=== PATIENT | male | born 1990 | race Two or more races ===

== ENCOUNTER → 2018-05-25 20:41 | Emergency (ER) | payer OTHER ==
[2018-05-25 20:51] VITALS: BP 136/86
--- NOTE | 2018-05-25 22:21 | ED ---
Lower Extremity - HPI Summary HPI Summary: 28-year-old male presents with right knee pain today. He denies any numbness or tingling. He states he is able to ambulate by limbing. No ankle pain. No other injury. He states that he was playing basketball and twisted his knee and his knees seemed to pop out of place and then went back. He states that he twisted his knee in medially. He denies any previous knee injuries. O - History of Current Complaint Chief Complaint: EDExtremityLower Stated Complaint: RT KNEE INJURY Time Seen by Provider: 05/25/18 22:03 Pain Intensity: 5 - Allergies/Home Medications Allergies/Adverse Reactions: Allergies Allergy/AdvReac Type Severity Reaction Status Date / Time shrimp Allergy Anaphylatic Verified 05/25/18 20:51 Shock PMH/Surg Hx/FS Hx/Imm Hx Endocrine/Hematology History: Denies: Hx Anticoagulant Therapy Respiratory History: Denies: Hx Asthma Infectious Disease History: No Infectious Disease History: Denies: Traveled Outside the [place] in Last 30 Days - Family History Known Family History: Positive: Non-Contributory - Social History Substance Use Type: Reports: None Smoking Status (MU): Never Smoked Tobacco Review of Systems Negative: Fever Negative: Chest Pain Negative: Shortness Of Breath Positive: Myalgia - right knee pain All Other Systems Reviewed And Are Negative: Yes Physical Exam Triage Information Reviewed: Yes Vital Signs On Initial Exam: Initial Vitals Temp Pulse Resp BP Pulse Ox 99.8 F 97 18 136/86 99 05/25/18 20:48 05/25/18 20:48 05/25/18 20:48 05/25/18 20:48 05/25/18 20:48 Vital Signs Reviewed: Yes Appearance: Positive: Well-Appearing Skin: Positive: Warm, Dry Head/Face: Positive: Normal Head/Face Inspection Eyes: Positive: Normal, Conjunctiva Clear ENT: Positive: Pharynx normal Respiratory/Lung Sounds: Positive: Clear to Auscultation, Breath Sounds Present Cardiovascular: Positive: Normal, RRR Musculoskeletal: Positive: Limited @ - right knee with pain, Other - good pulses , tenderness medial aspect of right knee, negative ballotment Neurological: Positive: Normal Psychiatric: Positive: Normal Diagnostics - Vital Signs Vital Signs Temp Pulse Resp BP Pulse Ox 05/25/18 20:48 99.8 F 97 18 136/86 99 - Laboratory Lab Statement: Any lab studies that have been ordered have been reviewed, and results considered in the medical decision making process. - Radiology knee Radiology Interpretation Completed By: ED Physician Summary of Radiographic Findings: no fracture Lower Extremity Course/Dx - Course Course Of Treatment: 28-year-old male presents with right knee pain today. He denies any numbness or tingling. He states he is able to ambulate by limbing. No ankle pain. No other injury. He states that he was playing basketball and twisted his knee and his knees seemed to pop out of place and then went back. He states that he twisted his knee in medially. He denies any previous knee injuries. On exam has tenderness over medial aspect of right knee. Neurovascular intact. X-rays normal. We'll give crutches as needed. Told to practice RICE. Told follow up with orthopedic if no improvement. Patient understands agrees plan. - Diagnoses Differential Diagnosis/HQI/PQRI: Positive: Fracture (Closed), Sprain, Strain Provider Diagnoses: Right knee injury Discharge - Sign-Out/Discharge Documenting (check all that apply): Patient Departure - Discharge Plan Condition: Good Disposition: HOME Patient Education Materials: Knee Pain (ED) Referrals: No Primary Care Phys,NOPCP [Primary Care Provider] - María Islas MD [Medical Doctor] - Additional Instructions: Stay off knee as much as possible Ice, elevate, Ibuprofen or Tylenol every 6 hours for pain Follow up with ortho if no improvement Return to ED if develop or any new or worsening symptoms - Billing Disposition and Condition Condition: GOOD Disposition: Home
== END | disposition home or self-care (01) ==
LOC: ED 20:41
DX: S89.91XA Unspecified injury of right lower leg, initial encounter (principal); X50.0XXA Overexertion from strenuous movement or load, initial encounter; Y93.67 Activity, basketball; Y92.9 Unspecified place or not applicable
CPT/HCPCS: 99282

== ENCOUNTER 2018-07-26 05:34 | Day surgery (SDC) | payer OTHER ==
--- NOTE | 2018-07-07 18:24 | HP ---
PREOPERATIVE HISTORY AND PHYSICAL: DATE OF ADMISSION/SURGERY: 07/26/18 DATE OF OFFICE VISIT: 07/04/18 ATTENDING SURGEON: Dr. Baljit Salcedo.* (DICTATED BY AUDREY MURDOCK) PROCEDURE: Right knee arthroscopy, anterior cruciate ligament reconstruction, and possible meniscus repair. CHIEF COMPLAINT: Right knee pain. HISTORY OF PRESENT ILLNESS: Uli is a 28-year-old male who presents to the clinic for right knee pain and instability due to an anterior cruciate ligament tear and meniscus tear. He has failed conservative measures and therefore agreed to undergo a right knee arthroscopy, anterior cruciate ligament reconstruction, and possible meniscus repair with Dr. Salcedo on 07/26/18. PAST MEDICAL HISTORY: Denies current problems. PAST SURGICAL HISTORY: Right humerus fracture. Denies complications with anesthesia. MEDICATIONS: No active medications. ALLERGIES: No known drug allergies. FAMILY HISTORY: Positive for diabetes, hypertension, cancer. SOCIAL HISTORY: He lives with his housemate. He is a grad student. He reports smoking 1 to 2 cigarettes per week. He reports occasional alcohol consumption. He exercises regularly. He is right hand dominant. REVIEW OF SYSTEMS: A 14-point review of systems was reviewed with the patient. Positive for current complaint, otherwise negative. Denies fever, chills, chest pain, shortness of breath, history of DVT or PE, history of bleeding disorder. PHYSICAL EXAMINATION GENERAL: A 28-year-old well-developed, well-nourished male, in no acute distress. VITAL SIGNS: Height 70, weight 151, pulse 95, blood pressure 106/68, respiratory rate 18, temperature 96.7, BMI 21.7. HEENT: Normocephalic, atraumatic. PERRLA. Throat clear. NECK: Supple. PULMONARY: Lungs are clear to auscultation bilaterally. No wheezing, rhonchi, or rales. CARDIO: Regular rate and rhythm. S1, S2. No murmurs, gallops, or rubs. No edema. ABDOMEN: Positive bowel sounds. Soft, nontender. NEURO: Alert and oriented x3. Cranial nerves grossly intact. MUSCULOSKELETAL: Right lower extremity: Skin is intact. No warmth or erythema. Range of motion 0 to 130. 2B Vandana. Negative posterior drawer. Stable to varus and valgus stress. Tender over the medial joint line. Positive Caitlyn. Calf soft, nontender. +2 DP pulse. Sensation intact to light touch distally. DIAGNOSTIC STUDIES: MRI revealed grade 3 ACL rupture with an LCL and MCL sprain and a lateral meniscus tear. IMPRESSION: Right knee anterior cruciate ligament rupture and lateral meniscus tear. PLAN: The patient is scheduled to undergo a right knee arthroscopy, anterior cruciate ligament reconstruction, possible meniscus repair with Dr. Salcedo on . He has agreed to undergo BTB autograft. Percocet will be used for postop pain management, Keflex for antibiotic prophylaxis. He will follow up 8 days postop. AUDREY MURDOCK [id number]/[facility] #: [id number] MTDD
[~2018-07-26 05:34] MED LIST: Buffered Lidocaine 1% SYRIN* 1 ML/SYRINGE INTRADERM ONE; Lactated Ringers 1000 ML Bag* 1,000 ML IV SCH
[2018-07-26] MEDS ORDERED: ceFAZolin 2 GM in NS PREMIX(*) 2 GM/100 ML BAG IVPB ONE (06:29)
[2018-07-26] MEDS ORDERED: Buffered Lidocaine 1% SYRIN* 1 ML/SYRINGE INTRADERM ONE (06:29)
[2018-07-26] MEDS ORDERED: Ropivacaine* 2 MG/ML 20 ML VIAL (0.2%) ONE (06:51)
[2018-07-26] MEDS ORDERED: Lidocaine 1% MPF wEPI 200,000* 30 ML SDV ONE (06:51)
[2018-07-26] MEDS ORDERED: Midazolam* 1 MG/ML 2 ML VIAL (2 MG) ONE (07:26)
[2018-07-26] MEDS ORDERED: fentaNYL* 50 MCG/ML 2 ML VIAL (100 MCG VIAL) ONE ×2 (07:26→08:12)
[2018-07-26] MEDS ORDERED: Lidocaine 2% PF * 5 ML VIAL ONE (08:12)
[2018-07-26] MEDS ORDERED: Propofol* 10 MG/ML 20 ML BTL ONE (08:12)
[2018-07-26] MEDS ORDERED: Ondansetron INJ* 2 MG/ML VIAL ONE (08:12)
[2018-07-26] MEDS ORDERED: Dexamethasone IV* 4 MG/ML 1 ML (4 MG) ONE (08:12)
[2018-07-26] MEDS ORDERED: Ketorolac INJ* 30 MG/ML 1 ML VIAL ONE (08:13)
[2018-07-26] MEDS ORDERED: Naloxone* 0.4 MG/ML 1 ML VIAL IV PRN (08:20)
[2018-07-26] MEDS ORDERED: fentaNYL* 50 MCG/ML 2 ML VIAL (100 MCG VIAL) IV PRN (08:20)
[2018-07-26] MEDS ORDERED: HYDROcodone/ACETAMIN 5-325 MG* 1 TAB ONE ×2 (09:52→10:06)
[2018-07-26] MEDS ORDERED: HYDROmorphone INJ1* 1 MG/ML SYRINGE ONE (09:53)
[2018-07-26] MEDS: HYDROcodone/ACETAMIN 5-325 MG* 1 TAB PO PRN ×2 (09:54→10:06)
[2018-07-26] MEDS: HYDROmorphone INJ1* 1 MG/ML SYRINGE IV PRN ×2 (09:55→10:07)
[2018-07-26 11:16] VITALS: BP 129/85
--- NOTE | 2018-07-27 09:43 | OP ---
OPERATIVE REPORT: DATE OF OPERATION: 07/26/18 - [facility] DATE OF : 89 SURGEON: Baljit Salcedo MD. NEONATAL PEDIATRIC NURSE: AUDREY Aguirre. An boilermaker's assistant was needed for the entirety of the case to help with positioning, retraction, and utilized throughout all portions of the case. ANESTHESIOLOGIST: Dr. Tracey. ANESTHESIA: General. PRE-OP DIAGNOSIS: Right knee grade 3 anterior cruciate ligament rupture and medial meniscus tear. POST-OP DIAGNOSIS: Right knee grade 3 anterior cruciate ligament rupture and medial meniscus tear. OPERATIVE PROCEDURE: 1. Right knee arthroscopy with ACL reconstruction using BTB autograft. 2. Partial lateral meniscectomy. COMPLICATIONS: None. ESTIMATED BLOOD LOSS: Minimal. TOURNIQUET TIME: 70 minutes at 250 mmHg. INDICATIONS: Uli Choudhury is a 28-year-old male who sustained an injury on 05/26/18 while playing basketball. He was diagnosed with sprains of the collateral ligament as well as a grade 3 ACL rupture and a meniscus tear. He underwent physical therapy and elected to proceed with surgical treatment. Risk and benefits of surgery were discussed at length, included but not limited to bleeding, infection, damage to nerves, vessels, surrounding structures, wound nonhealing, persistent pain, need for surgery, scarring, stiffness, incomplete relief of symptoms, risk of anesthesia, failure of the repair, arthritis, risk of DVT. He elected to proceed. DESCRIPTION OF PROCEDURE: The patient was greeted in the preoperative area by the attending surgeon. Correct extremity was marked and consent was confirmed. The patient was brought back to the operating suite, was placed in the supine position on the operating table, then underwent general anesthesia with LMA intubation, after which he was appropriately positioned on the bed in lateral position, and sterile tourniquet was placed high on the proximal thigh. A flores bag was placed to keep the knee at 90 degrees. The right leg was then prepped and draped in the usual sterile fashion beginning with chlorhexidine soap, scrub , and alcohol wipe and a final prep with ChloraPrep. After appropriate surgical pause indicating side, site, procedure, and administration of antibiotics, the knee was intra-articularly injected with 1% lidocaine with epi. The Esmarch was used to exsanguinate the limb and the tourniquet inflated to 250 mmHg. A 15 blade was used to make a midline incision. Soft tissue were carefully dissected to expose paratenon, which was then excised and saved for later closure. The patellar tendon was identified. The center 10 mm was then harvested using 10 blade in full-thickness fashion. Dissection was taken proximally and the femoral bone block was then harvested using a sagittal saw. Bone quality was very good. The bone block from the femoral side was harvested to be about 9 x 23 mm. Distally, the tibial bone block was harvested with a sagittal saw and osteotome to offer 10 x 30 mm bone block. This was then prepared in the back table by the boilermaker's assistant. Again, his bone quality was very good. Meanwhile, I closed the tendon in an interrupted fashion using 0 Vicryl. The tourniquet was then deflated and attention was directed to arthroscopy. The lateral portal was then made through the capsule. The scope was brought into the joint. Joint was examined. There was abundant synovitis that was present. The anteromedial portal was made with an 18-gauge needle for localization. Shaver was used to debride back the abundant synovitis. The ACL had grade 3 rupture. The stump and the ACL was debrided back, and then a diagnostic arthroscopy was done. The patellofemoral joint had grade 0 changes. Medial and lateral gutters were intact without any loose bodies or debris. Medial compartment had grade 0 changes with an intact meniscus. Lateral compartment had grade 0 to 1 changes. There was evidence of a tear at the root of the lateral meniscus with an unstable flap in the anterior portion of the roof but the remainder of the meniscus was intact. The shaver and biters were used to debride this back with care to not damage the cartilage. After this was complete, the remainder of the meniscus was found to be intact. The attention was directed to tunnel placement. The lateral wall was then prepared in the usual fashion with electrocautery device to expose the femoral footprint. Once this was identified, a starting awl was then moved to isaias a provisional starting point. This was then checked by changing the scope to the medial portal to allow for placement to use as a guide for reference for the femoral tunnel. After this was done, attention was directed to the tibial tunnel. The tip-to-tip guide was set at about 50 degrees , and the guide pin was placed in the center of the footprint. A size 10-mm full-bore reamer was used to drill through the bone. Excess reamings were saved for bone graft. The tunnel was then rasped and care was placed to prevent fluid regress. At this point, the knee was then hyperflexed with a Stock and Nephew straight guide. This was then placed in the center of the footprint. The Beath pin was then placed bicortically and out through the IT band and the skin. The size 9-mm low-profile reamer was then used to drill to a depth of about 25 to 27 mm. Excess bone was removed. Tunnel was found to have a good back wall and good position. Tunnel was then notched and a #2 Ethibond suture was passed through the eyelet of the Beath pin. The suture was then passed through the tibial tunnel. At this point, the graft was brought from the back table, which has been wrapped in a saline-soaked gauze and then patched under direct and arthroscopic visualization into the tunnel, it was well seated and secured with a 7 x 25 mm SOFSILK screw with excellent purchase. There was excellent bone quality and bite. The knee was then cycled approximately 15 times and no creep or stretch of the graft. No change in the tunnel. The scope was brought back into the joint and found the graft was still in the same place. The knee was then placed in about 20 degrees of flexion with tension on the tibial sutures and posterior drawer. The size 9 x 25 mm SOFSILK screw was then used to secure the tibial bone block. The knee was then taken through a range of motion. Vandana was assessed and found to be stable. The scope was brought back to the joint. The graft was found to be in good position. Final images were obtained. The wounds were copiously irrigated. The knee was taken to full extension and had no impingement. Final images were obtained. Wounds were copiously irrigated with sterile saline. The bone graft was then placed in the patellar defect, and 0 Vicryl was then used to close over the bony defect. Peritoneum was then closed with 2-0 Vicryl in a running fashion. Wounds were then copiously irrigated with sterile saline. The skin was closed in layers with 3-0 Monocryl for subcu and running. The knee was intra-articularly and superficially injected with 0.2% ropivacaine. Sterile dressings were applied. Cryo/Cuff and a hinged knee brace were applied locked in extension. He was awoken from anesthesia and transferred to the PACU in stable condition. POSTOPERATIVE PLAN: He will be weightbearing as tolerated. Range of motion as tolerated. Start therapy on Tuesday. He will be discharged on pain medications and antibiotic. DVT prophylaxis was considered but deferred due to no previous personal or family history. I will see the patient back in 6 to 8 days. [id number]/[facility] #: [id number] MTDD
== END 2018-07-26 11:22 | disposition home or self-care (01) ==
LOC: OR 05:34
PROVIDERS: ATTEND Orthopaedic Surgery
DX: S83.511A Sprain of anterior cruciate ligament of right knee, initial encounter (principal); S83.241A Other tear of medial meniscus, current injury, right knee, initial encounter; X50.0XXA Overexertion from strenuous movement or load, initial encounter; Y93.67 Activity, basketball; Y92.310 Basketball court as the place of occurrence of the external cause; Z72.0 Tobacco use
CPT/HCPCS: C1713; J0690; J1100; J1170; J1885; J2001; J2250; J2405; J2704; J2795; J3010